=== PATIENT | male | born 2000 | race Two or more races ===

== ENCOUNTER → 2022-05-25 | Emergency (ER) | payer OTHER ==
[~2022-05-25] VITALS: Ht 185.4 cm; Wt 83.0 kg
[~2022-05-25] MED LIST: LEVSIN/SL0.125 MG SL
== END | disposition home or self-care (01) ==
LOC: ER 18:29
DX: R10.84 Generalized abdominal pain (principal); Z20.822 Contact with and (suspected) exposure to COVID-19